=== PATIENT | female | born 1960 | race Hispanic/Latino ===

== ENCOUNTER 2023-08-25 17:46 | Inpatient (IN) | payer OTHER ==
[~2023-08-25] VITALS: Ht 160 cm; Wt 76.7 kg
[2023-08-25] MEDS ORDERED: HYDRALAZINE HCL 20 MG/ML VIAL ONE (18:50)
[2023-08-25] MEDS: HYDRALAZINE HCL 20 MG/ML VIAL IV ONE (18:54)
[2023-08-25] MEDS ORDERED: SODIUM CHLORIDE 0.9% 1000ML 1,000 ML ONE (19:04)
[2023-08-25] MEDS ORDERED: ONDANSETRON HCL INJ 2MG/ML 2ML 2 MG/ML VIAL ONE ×2 (19:04→20:25)
[2023-08-25] MEDS: ONDANSETRON HCL INJ 2MG/ML 2ML 2 MG/ML VIAL IV STA ×2 (19:08→20:24)
[2023-08-25] MEDS: SODIUM CHLORIDE 0.9% 1000ML 1,000 ML IV SCH (19:08)
[2023-08-25] MEDS ORDERED: ONDANSETRON HCL INJ 2MG/ML 2ML 2 MG/ML VIAL IV PRN (20:30)
[2023-08-25 20:45] VITALS: PULSE 76; RESP 18; O2SAT 98
[2023-08-25] MEDS: METOCLOPRAMIDE HCL 10 MG/2ML VIAL IV SCH (21:00)
[2023-08-25] MEDS: FAMOTIDINE 20 MG/2 ML VIAL IV STA (21:08)
[2023-08-25] MEDS ORDERED: ATORVASTATIN CA40 MG PO (23:18)
[2023-08-25] MEDS ORDERED: METFORMIN HCL1000 MG PO (23:18)
[2023-08-25] MEDS ORDERED: AMLODIPINE BESY10 MG PO (23:18)
[2023-08-25] MEDS ORDERED: VALSARTAN160 MG PO (23:18)
[2023-08-25] MEDS ORDERED: BASAGLAR K100 UNIT/1 SC (23:18)
[2023-08-25] MEDS ORDERED: JARDIANCE25 MG PO (23:18)
[2023-08-26] VITALS (9 sets, daily range): BP systolic 123–174; BP diastolic 48–75; PULSE 76–94; RESP 17–20; TEMP 98.1–98.8; O2SAT 96–100
[2023-08-26] MEDS: SODIUM CHLORIDE 0.9% 1000ML 1,000 ML IV SCH (01:02)
[2023-08-26] MEDS: ACETAMINOPHEN 325 MG TAB PO PRN (04:53)
[2023-08-26] MEDS: HYDRALAZINE HCL 20 MG/ML VIAL IV PRN (05:23)
[2023-08-26 05:40] LABS: BASOPHILS % 0.4 % (0.0-1.0); HEMATOCRIT 37.9 % (34.2-44.1); HEMOGLOBIN 12.7 g/dL (12.0-16.0); LYMPHOCYTES # (AUTO) 0.8 (1.0-3.2); LYMPHOCYTES % 7.6 % (18.0-39.1); MEAN CORPUSCULAR HGB CONC 33.5 g/dL (31-35); MEAN CORPUSCULAR VOLUME 86.5 fL (81-99); MONOCYTES # (AUTO) 0.1 (0.2-0.8); NEUTROPHILS # (AUTO) 9.5 (2.1-6.9); NEUTROPHILS % 90.5 % (38.7-80.0); PLATELET COUNT 222 x10e3/uL (140-360); RED BLOOD COUNT 4.38 x10e6/uL (3.6-5.1); RED CELL DISTRIBUTION WIDTH 13.7 % (11.7-14.4); WHITE BLOOD COUNT 10.52 x10e3/uL (4.8-10.8)
[2023-08-26 06:15] LABS: ALBUMIN/GLOBULIN RATIO 1.3 (0.8-2.0); ANION GAP 24.3 mmol/L (8-16); CALCIUM 9.2 mg/dL (8.4-10.2); CREATININE, SERUM 0.75 mg/dL (0.57-1.11); POTASSIUM 4.3 mmol/L (3.5-5.1); TOTAL PROTEIN 7.1 g/dL (6.5-8.1)
[2023-08-26] MEDS: INSULIN GLARGINE 100 UNITS/ML VIAL SQ SCH (09:09)
[2023-08-26] MEDS: VALSARTAN 160 MG TAB PO SCH (09:09)
[2023-08-26] MEDS: AMLODIPINE BESYLATE 10 MG TAB PO SCH (09:10)
[2023-08-26] MEDS: FAMOTIDINE 20 MG/2 ML VIAL IV SCH (09:10)
[2023-08-26] MEDS: ENOXAPARIN SOD INJ 40 MG/0.4 ML SYR SC SCH (17:48)
[2023-08-27] VITALS (9 sets, daily range): BP systolic 128–149; BP diastolic 55–63; PULSE 63–97; RESP 18–20; TEMP 97–99.1; O2SAT 94–100
[2023-08-27] MEDS ORDERED: DEXTROSE 50% SYRINGE 50 ML IV PRN (15:15)
[2023-08-27 15:43] LABS: BASOPHILS # (AUTO) 0.1 (0.0-0.1); BASOPHILS % 0.6 % (0.0-1.0); HEMATOCRIT 36.5 % (34.2-44.1); HEMOGLOBIN 12.2 g/dL (12.0-16.0); LYMPHOCYTES # (AUTO) 1.5 (1.0-3.2); LYMPHOCYTES % 15.2 % (18.0-39.1); MEAN CORPUSCULAR HEMOGLOBIN 28.8 pg (28-32); MEAN CORPUSCULAR HGB CONC 33.4 g/dL (31-35); MEAN CORPUSCULAR VOLUME 86.3 fL (81-99); MONOCYTES # (AUTO) 0.9 (0.2-0.8); MONOCYTES % 8.8 % (4.4-11.3); NEUTROPHILS # (AUTO) 7.3 (2.1-6.9); NEUTROPHILS % 74.9 % (38.7-80.0); PLATELET COUNT 205 x10e3/uL (140-360); RED BLOOD COUNT 4.23 x10e6/uL (3.6-5.1); RED CELL DISTRIBUTION WIDTH 14.1 % (11.7-14.4); WHITE BLOOD COUNT 9.71 x10e3/uL (4.8-10.8)
[2023-08-27 15:55] LABS: ANION GAP 16.2 mmol/L (8-16); CALCIUM 8.6 mg/dL (8.4-10.2); CREATININE, SERUM 0.76 mg/dL (0.57-1.11); POTASSIUM 4.2 mmol/L (3.5-5.1)
[2023-08-27] MEDS: SUCRALFATE 1 GM/10 ML SUSP NG SCH (17:51)
[2023-08-27] MEDS: INSULIN LISPRO 100 UNIT/1 ML 3ML VIAL SQ SCH (17:52)
[2023-08-28] VITALS: BP 122/58; PULSE 86; RESP 18; TEMP 99.1; O2SAT 98
[2023-08-28 04:00] VITALS: BP 138/67; PULSE 84; RESP 18; TEMP 98.3; O2SAT 97
[2023-08-28 08:12] LABS: BASOPHILS # (AUTO) 0.1 (0.0-0.1); BASOPHILS % 0.9 % (0.0-1.0); EOSINOPHILS % 0.2 % (0.0-6.0); HEMATOCRIT 38.2 % (34.2-44.1); HEMOGLOBIN 12.2 g/dL (12.0-16.0); LYMPHOCYTES # (AUTO) 1.5 (1.0-3.2); LYMPHOCYTES % 26.5 % (18.0-39.1); MEAN CORPUSCULAR HEMOGLOBIN 27.9 pg (28-32); MEAN CORPUSCULAR HGB CONC 31.9 g/dL (31-35); MEAN CORPUSCULAR VOLUME 87.4 fL (81-99); MONOCYTES # (AUTO) 0.7 (0.2-0.8); MONOCYTES % 12.9 % (4.4-11.3); NEUTROPHILS # (AUTO) 3.3 (2.1-6.9); NEUTROPHILS % 58.8 % (38.7-80.0); PLATELET COUNT 205 x10e3/uL (140-360); RED BLOOD COUNT 4.37 x10e6/uL (3.6-5.1); RED CELL DISTRIBUTION WIDTH 13.8 % (11.7-14.4); WHITE BLOOD COUNT 5.67 x10e3/uL (4.8-10.8)
[2023-08-28 08:19] VITALS: BP 120/65; PULSE 84; RESP 20; TEMP 98.6; O2SAT 98
[2023-08-28 08:21] VITALS: BP 120/65; PULSE 84; RESP 20; TEMP 98.6; O2SAT 98
[2023-08-28 08:28] LABS: ANION GAP 14.7 mmol/L (8-16); CALCIUM 8.4 mg/dL (8.4-10.2); CREATININE, SERUM 0.67 mg/dL (0.57-1.11); POTASSIUM 3.7 mmol/L (3.5-5.1)
[2023-08-28] MEDS ORDERED: METOCLOPRAMIDE HCL 10 MG/2ML VIAL ONE (10:33)
[2023-08-28] MEDS ORDERED: SUCRALFATE 1 GM/10 ML SUSP ONE (10:33)
[2023-08-28 11:50] VITALS: BP 113/87; PULSE 86; RESP 18; TEMP 98.6; O2SAT 100
[2023-08-28 15:00] VITALS: BP 118/73; PULSE 69; RESP 20; TEMP 97.6; O2SAT 100
[2023-08-30] MEDS ORDERED: OXYBUTYNIN CHLORIDE 5 MG TAB ONE (16:00)
== END 2023-08-28 15:50 | disposition home or self-care (01) | DRG 392 ==
LOC: FSED 18:08 → ERHOLD 20:22 → MED/SURG3 23:09 → OBSVTOIN 08-26 18:48
PROVIDERS: ADMIT Internal Medicine; ATTEND Internal Medicine
DX: R11.2 Nausea with vomiting, unspecified (principal); T50.995A Adverse effect of other drugs, medicaments and biological substances, initial encounter; I16.0 Hypertensive urgency; E78.5 Hyperlipidemia, unspecified; E11.43 Type 2 diabetes mellitus with diabetic autonomic (poly)neuropathy; K31.84 Gastroparesis; Z79.4 Long term (current) use of insulin; Z79.84 Long term (current) use of oral hypoglycemic drugs; Y92.019 Unspecified place in single-family (private) house as the place of occurrence of the external cause
CPT/HCPCS: 36415; 70450; 74176; 80048; 80053; 82948; 83036; 83690; 83735; 84484; 85025; 93005; 94799; 96372; 99284; G0378; J0360; J2405; J2765; J7030